=== PATIENT | female | born 1995 | race Two or more races ===

== ENCOUNTER 2016-11-05 12:42 | Emergency (ER) | payer MEDICAID ==
[~2016-11-05] VITALS: Ht 160 cm; Wt 64.4 kg
[2016-11-05 13:00] VITALS: BP 130/80
[2016-11-05 13:15] LABS: Basophils # (auto) 0 uL; Basophils % (auto) 0.2 % (0.0-2.0); CONDITION Y; Eosinophils # (auto) 0 uL; Hemoglobin 14.8 g/dL (12.2-16.2); Lymphocytes % (auto) 9.5 % (10.0-50.0); Mean Corpuscular Hemoglobin 30.8 pg (28.0-32.0); Mean Corpuscular Hgb Conc. 34.3 g/dL (32.0-36.0); Mean Corpuscular Volume 89.9 fL (80.0-100.0); Mean Platelet Volume 9.3 fL (7.4-10.4); Monocytes # (auto) 0.8 uL; Monocytes % (auto) 3.6 % (0.0-12.0); Neutrophils # (auto) 18.5 uL; Neutrophils % (auto) 86.7 % (37.0-80.0); Platelet Count (auto) 302 10^3/uL (140-450); Red Cell Distribution Width 12.9 % (11.6-16.0); White Blood Cell 21.3 10^3/uL (4.4-10.8)
[2016-11-05] MEDS ORDERED: ONDANSETRON HCL 4 MG/2 ML VIAL IV ONE (13:15)
[2016-11-05] MEDS ORDERED: KETOROLAC TROMETH 30 MG/ML 1ML VIAL IV ONE (13:15)
[2016-11-05 13:36] LABS: Albumin 4.1 g/dL (3.4-5.0); BUN/Creatinine Ratio 11.5; Calcium 8.6 mg/dL (8.5-10.1); Potassium 3.6 mmol/L (3.5-5.1)
[2016-11-05 13:39] LABS: Bilirubin, Total 1.6 mg/dL (0.2-1.0); Total Protein 8.3 g/dL (6.4-8.2)
== END 2016-11-05 13:51 | disposition left against medical advice (07) ==
LOC: ER 12:48
DX: M54.9 Dorsalgia, unspecified (principal); R11.2 Nausea with vomiting, unspecified; Z53.21 Procedure and treatment not carried out due to patient leaving prior to being seen by health care provider
CPT/HCPCS: 36415; 80053; 84702; 85025; 96374; 96375; J1885; J2405